=== PATIENT | female | born 1985 | race Caucasian/White ===

== ENCOUNTER 2018-03-19 13:17 | Inpatient (IN) | payer OTHER ==
[2018-03-19] MEDS ORDERED: ONDANSETRON 4 MG INJ IV (14:30)
[2018-03-19] MEDS ORDERED: DOCUSATE SODIUM 100 MG CAP PO (17:30)
[2018-03-19 17:49] LABS: D-DIMER 325.28 ng/ml (<460)
[2018-03-19 18:01] LABS: TROPONIN-I < 0.010 ng/ml (0.000-0.120)
[2018-03-19] MEDS: ATORVASTATIN 20 MG TAB PO (20:29)
[2018-03-20] MEDS: PANTOPRAZOLE (EC) 40 MG TAB PO (05:22)
[2018-03-20 07:50] LABS: CHOL/HDL RATIO 6.2 RATIO; HDL CHOLESTEROL 34 mg/dl (34-82); LDL CHOLESTEROL,CALCULATED 145 mg/dl; TRIGLYCERIDES 169 mg/dl (0-149)
[2018-03-20 07:50] LABS: CHOLESTEROL 213 mg/dl (100-200)
[2018-03-20] MEDS: ASPIRIN (EC) 81 MG TAB PO (08:04)
[2018-03-20 08:39] LABS: HEMOGLOBIN A1C 5.5 % (0-5.9)
[2018-03-20] MEDS: TOPIRAMATE 25 MG TAB PO ×2 (12:03→21:27)
[2018-03-20 12:36] LABS: ANION GAP 12 (8-16); BLOOD UREA NITROGEN 14 mg/dl (7-20); CALCIUM 9.2 mg/dl (8.4-10.2); CARBON DIOXIDE 26 mmol/L (21-31); CHLORIDE 107 mmol/L (97-110); CREATININE 0.64 mg/dl (0.44-1.00); GLUCOSE 99 mg/dl (70-220); POTASSIUM 4.4 mmol/L (3.5-5.1); SODIUM 141 mmol/L (135-144)
[2018-03-20] MEDS: IOHEXOL 100 ML (13:24)
[2018-03-20] MEDS: SOD CHLORIDE 0.9% 100 ML (13:24)
[2018-03-20] MEDS: ATORVASTATIN 20 MG TAB PO (21:27)
[2018-03-21] MEDS: PANTOPRAZOLE (EC) 40 MG TAB PO (05:48)
[2018-03-21] MEDS: ACETAMINOPHEN 325 MG TAB PO (05:50)
[2018-03-21] MEDS: ASPIRIN (EC) 81 MG TAB PO (08:30)
[2018-03-21] MEDS: TOPIRAMATE 25 MG TAB PO (08:30)
== END 2018-03-21 15:14 | disposition home or self-care (01) | DRG 69 ==
LOC: MS4 03-20 17:57 → MS3 13:17
PROVIDERS: Internal Medicine Nephrology
DX: G45.8 Other transient cerebral ischemic attacks and related syndromes (principal); G47.30 Sleep apnea, unspecified; E66.9 Obesity, unspecified; Z68.37 Body mass index [BMI] 37.0-37.9, adult; G43.909 Migraine, unspecified, not intractable, without status migrainosus
CPT/HCPCS: 70450; 70496; 70553; 80048; 80061; 83036; 84484; 85378; 93306; 93880; 97161